=== PATIENT | male | born 1995 | race Hispanic/Latino ===

== ENCOUNTER 2020-06-06 17:16 | Emergency (ER) | payer OTHER ==
[2020-06-06] MEDS ORDERED: IOHEXOL 350 MG/ML 100ML INFUS..BTL IV ONE (18:31)
[2020-06-06] MEDS ORDERED: SODIUM CHLORIDE 0.9% 1000ML 1,000 ML IV ONE (19:06)
[2020-06-06] MEDS ORDERED: CEFAZOLIN SODIUM 1 GM VIAL ONE (21:06)
[2020-06-06] MEDS ORDERED: TETANUS/DIPHTHERIA TOXOID [ADULT] 0.5 ML VIAL IM ONE (22:17)
== END 2020-06-06 22:56 | disposition home or self-care (01) ==
LOC: EDH 17:16
DX: S91.311A Laceration without foreign body, right foot, initial encounter (principal); S51.012A Laceration without foreign body of left elbow, initial encounter; S81.811A Laceration without foreign body, right lower leg, initial encounter; S20.229A Contusion of unspecified back wall of thorax, initial encounter; S10.93XA Contusion of unspecified part of neck, initial encounter; S00.83XA Contusion of other part of head, initial encounter; F14.10 Cocaine abuse, uncomplicated; Z90.49 Acquired absence of other specified parts of digestive tract; Z72.89 Other problems related to lifestyle; V49.9XXA Car occupant (driver) (passenger) injured in unspecified traffic accident, initial encounter; Y93.89 Activity, other specified; Y92.488 Other paved roadways as the place of occurrence of the external cause; Y99.8 Other external cause status
CPT/HCPCS: 12004; 36415; 70450; 71260; 72125; 73080; 73630; 74177; 80053; 80305; 81003; 82550; 83735; 84484; 85025; 85610; 85730; 90471; 90714; 93005; 96361; 96365; 99285; J0690; J7030; Q9967